=== PATIENT | male | born 1985 | race Caucasian/White ===

== ENCOUNTER 2020-09-04 04:03 | Emergency (ER) | payer OTHER ==
[~2020-09-04] VITALS: Ht 175.3 cm; Wt 84.8 kg
[~2020-09-04 04:03] MED LIST: BUTALB-APAP-CA1 EACH PO; HYDROCODONE-AP1 EAC6 PO; NOHOMEMEDICATIONS; ZOFRAN ODT4 MG PO; ZOFRAN4 MG PO
[2020-09-04] MEDS ORDERED: APAP W/CODEINE1 TA2 PO (06:44)
[2020-09-04] MEDS ORDERED: KEFLEX500 M1 PO (06:44)
[2020-09-04 06:54] VITALS: BP 147/101
== END 2020-09-04 06:54 | disposition home or self-care (01) ==
LOC: M.ERS 04:03
DX: S01.312A Laceration without foreign body of left ear, initial encounter (principal); S40.022A Contusion of left upper arm, initial encounter; Z79.899 Other long term (current) drug therapy; Z88.0 Allergy status to penicillin; F17.210 Nicotine dependence, cigarettes, uncomplicated; Y04.2XXA Assault by strike against or bumped into by another person, initial encounter; Y93.89 Activity, other specified; Y92.89 Other specified places as the place of occurrence of the external cause; Y99.8 Other external cause status

== ENCOUNTER 2021-08-09 18:24 | Emergency (ER) | payer OTHER ==
[~2021-08-09] VITALS: Ht 175.3 cm; Wt 83.0 kg
[~2021-08-09 18:24] MED LIST changes: +APAP W/CODEINE1 TA2 PO; +KEFLEX500 M1 PO
[2021-08-09] MEDS ORDERED: FLEXERIL PO (19:11)
[2021-08-09] MEDS ORDERED: MEDROLDOSEPACK PO (19:11)
[2021-08-09 19:23] VITALS: BP 127/67
== END 2021-08-09 19:24 | disposition home or self-care (01) ==
LOC: M.ERS 18:24
DX: R20.2 Paresthesia of skin (principal); Z88.0 Allergy status to penicillin

== ENCOUNTER 2021-09-14 12:41 | Emergency (ER) | payer OTHER ==
[~2021-09-14] VITALS: Ht 170.2 cm; Wt 81.7 kg
[~2021-09-14 12:41] MED LIST changes: +FLEXERIL PO; +MEDROLDOSEPACK PO
[2021-09-14] MEDS ORDERED: PROAIR HFA8.5 GM INH (15:14)
[2021-09-14] MEDS ORDERED: PREDNISONE 20 M20 MG PO (15:14)
[2021-09-14] MEDS ORDERED: TESSALON PERLE100 MG PO (15:14)
[2021-09-14 15:28] VITALS: BP 123/84
== END 2021-09-14 15:29 | disposition home or self-care (01) ==
LOC: M.ERS 12:41
DX: J20.9 Acute bronchitis, unspecified (principal); Z20.822 Contact with and (suspected) exposure to COVID-19; F17.210 Nicotine dependence, cigarettes, uncomplicated; Z88.0 Allergy status to penicillin

== ENCOUNTER 2021-11-30 17:58 | Emergency (ER) | payer OTHER ==
[~2021-11-30] VITALS: Ht 175.3 cm; Wt 79.8 kg
[~2021-11-30 17:58] MED LIST changes: +PREDNISONE 20 M20 MG PO; +PROAIR HFA8.5 GM INH; +TESSALON PERLE100 MG PO
[2021-11-30 19:24] VITALS: BP 125/73
== END 2021-11-30 19:24 | disposition home or self-care (01) ==
LOC: M.ERS 17:58
DX: M25.572 Pain in left ankle and joints of left foot (principal); F17.210 Nicotine dependence, cigarettes, uncomplicated; Z88.0 Allergy status to penicillin; X50.1XXA Overexertion from prolonged static or awkward postures, initial encounter; Y93.39 Activity, other involving climbing, rappelling and jumping off; Y92.89 Other specified places as the place of occurrence of the external cause; Y99.8 Other external cause status